=== PATIENT | male | born 1960 ===

== ENCOUNTER 2023-01-03 08:00 | Emergency (ER) | payer OTHER ==
[~2023-01-03] VITALS: Ht 177.8 cm; Wt 95.0 kg
[2023-01-03 08:19] VITALS: BP 164/96; PULSE 65; RESP 18; TEMP 97.8; O2SAT 98
== END 2023-01-03 10:32 | disposition left against medical advice (07) ==
LOC: ER 08:01
DX: H57.11 Ocular pain, right eye (principal); Z53.21 Procedure and treatment not carried out due to patient leaving prior to being seen by health care provider
CPT/HCPCS: 99281